=== PATIENT | male | born 1950 | race Caucasian/White ===

== ENCOUNTER → 2018-09-03 06:37 | Outpatient (CLI) | payer MEDICARE, SELFPAY ==
--- NOTE | 2018-09-03 10:33 | NEURO ---
NCS and/or EMG Patient Report Ordering Doctor: Gale Nunez DATE OF SERVICE: 09/03/18 Is a left upper extremity EMG and nerve conduction study performed on this 68-year-old male with a remote history of polio at age 5 primarily affecting his right arm and his left leg. In July approximately 3-4 weeks ago he fell and he says for 3-4 minutes his left arm, normally his good arm was paralyzed, numb and tingly. His symptoms resolved and his arm normalized however over the past several weeks he has noted increasing weakness and muscle atrophy of his biceps muscles. On examination he has severe atrophy in his left shoulder muscles as well as his biceps and triceps. There are no obvious fasciculations. Distally his wrist flexors, extensors and hand intrinsics appear relatively unaffected. Left upper extremity sensory and motor nerve conduction studies performed. The median motor and sensory and ulnar motor and sensory responses are normal. There is a mild decrement in the ulnar conduction velocity across the elbow however this appears to be asymptomatic. Radial sensory responses are normal. Median and ulnar F-wave latencies are normal. Extensive needle electromyography was performed in the left upper extremity. Muscles evaluated included the first dorsal interosseous, abductor pollicis brevis, brachioradialis, biceps, triceps, deltoid, trapezius, and serratus anterior muscles. Cervical paraspinal muscles were also evaluated on the left side. Pathologic spontaneous activity and fibrillation potentials were seen only in the left C6 cervical paraspinal muscles. Other muscles were abnormal however demonstrating large motor units, likely a chronic finding, worse in the biceps and triceps muscles. More distally the large motor units were present but less pronounced in the first dorsal interosseous and abductor pollicis brevis muscle. Impression: Complex study likely with underlying chronic upper motor neuron changes due to the patient's history of chronic polio with superimposed C6 radiculopathy. Further evaluation with cervical MRI is recommended if clinically indicated.
== END ==
PROVIDERS: Family Provider Family Medicine; PCP Family Medicine; Referring Provider Physician Assistant; Visit Provider Physician Assistant
DX: R53.1 Weakness (principal)
CPT/HCPCS: 95886; 95909

== ENCOUNTER → 2018-11-06 12:05 | Outpatient (CLI) | payer MEDICARE, SELFPAY ==
[2018-11-06 13:36] LABS: CPK Total, Creatine Kinase 134 U/L (39-308)
[2018-11-07 16:15] LABS: Aldolase 4.2 U/L (3.3-10.3)
== END ==
PROVIDERS: Family Provider Family Medicine; PCP Family Medicine; Referring Provider Psychiatry & Neurology Neurology; Visit Provider Psychiatry & Neurology Neurology
DX: R53.1 Weakness (principal); M62.50 Muscle wasting and atrophy, not elsewhere classified, unspecified site
CPT/HCPCS: 36415; 82085; 82550

== ENCOUNTER → 2019-01-06 | Outpatient (CLI) | payer MEDICARE, SELFPAY ==
--- NOTE | 2019-01-06 10:31 | NEURO ---
NCS and/or EMG Patient Report Ordering Doctor: Tr Eduardo DATE OF SERVICE: 01/06/19 This is a bilateral lower extremity nerve conduction study performed on this 68-year-old male with a history of polio. Previous study of the left upper extremity was a complex study in August 2018 performed after an injury to his left arm causing increased shoulder weakness in the left arm. There was felt to be at that point chronic upper motor neuron syndrome as well as a superimposed C6 radiculopathy. Today's study is performed of the lower extremities. The patient reports no changes recently in his lower extremities. Bilateral lower extremity sensory and motor nerve conduction studies performed demonstrating moderate to severe decrease in conduction velocity with prolonged latencies and reduced amplitudes more so in the peripheral nerves. The sensory nerves are relatively preserved. Tibial and common peroneal F-wave latencies are prolonged and H reflex is from the tibial nerves bilaterally are reduced. 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
== END | disposition home or self-care (01) ==
LOC: PSN 07:34
PROVIDERS: Family Provider Family Medicine; PCP Family Medicine; Referring Provider Psychiatry & Neurology Neurology; Visit Provider Psychiatry & Neurology Neurology
DX: G14 Postpolio syndrome (principal); G72.9 Myopathy, unspecified
CPT/HCPCS: 95910